=== PATIENT | male | born 1985 | race Caucasian/White ===

== ENCOUNTER → 2017-06-13 | Outpatient (CLI) | payer OTHER ==
[~2017-06-13] MED LIST: ALBU90OI INH; ATHLETE'S FOOT130 GM TOP; Amoxicillin500 MG PO; Antivert12.5 MG PO; BENZ100A PO; CEPH500 PO; Cleocin HCl300 MG PO; HYDHCL25 PO; Prednisone20 MG PO; SPACE CHAMBER1 EACH MC; Ultram50 MG PO
== END ==
LOC: LAB EV 13:51
DX: L03.811 Cellulitis of head [any part, except face] (principal)
CPT/HCPCS: 87070; 87205

== ENCOUNTER → 2017-07-18 | Outpatient (CLI) | payer OTHER ==
[~2017-07-18] MED LIST changes: -ATHLETE'S FOOT130 GM TOP; -CEPH500 PO; -HYDHCL25 PO
== END ==
LOC: LAB SHORT 07:13 → LAB 07:13 → PLD 07:13
DX: L65.9 Nonscarring hair loss, unspecified (principal); Z79.899 Other long term (current) drug therapy
CPT/HCPCS: 88312

== ENCOUNTER → 2020-10-04 | Outpatient (CLI) | payer OTHER ==
[~2020-10-04] MED LIST changes: +ATHLETE'S FOOT130 GM TOP; +CEPH500 PO; +HYDHCL25 PO
== END ==
LOC: LAB 14:40 → LAB SHORT 14:40
DX: L65.9 Nonscarring hair loss, unspecified (principal)
CPT/HCPCS: 87070; 87205

== ENCOUNTER → 2021-09-06 | Outpatient (CLI) | payer OTHER | END | disposition home or self-care (01) | LOC: LAB SHORT 15:00 → LAB 15:00 | DX: L08.0 Pyoderma (principal) | CPT/HCPCS: 87070; 87205 ==